=== PATIENT | female | born 1955 | race Caucasian/White ===

== ENCOUNTER 2017-11-26 10:09 | Inpatient (IN) | payer OTHER ==
[~2017-11-26] VITALS: Ht 167.6 cm; Wt 90.9 kg
[2017-11-26] MEDS ORDERED: PLEASE ENTER ALLERGIES MC SCH (10:30)
[2017-11-26] MEDS ORDERED: MORPHINE SULFATE 4 MG/ML, 1ML IVPush PRN ×2 (10:30→19:30)
[2017-11-26] MEDS ORDERED: PLEASE ENTER HEIGHT AND WEIGHT MC SCH (10:30)
[2017-11-26 10:57] LABS: BASOPHILS # (AUTO) 0.05 x10^3/uL (0-0.1); BASOPHILS % (AUTO) 0 % (0-1); EOSINOPHILS # (AUTO) 0.09 x10^3/uL (0-0.4); EOSINOPHILS % (AUTO) 1 % (1-7); LYMPHOCYTES # (AUTO) 2.95 x10^3/uL (1-3.4); LYMPHOCYTES % (AUTO) 22 % (22-44); MD NO; MEAN CORPUSCULAR HEMOGLOBIN 32.8 pg (27.0-34.8); MEAN CORPUSCULAR HGB CONC 34.1 g/dL (32.4-35.8); MEAN CORPUSCULAR VOLUME 96.2 fL (80-100); MEAN PLATELET VOLUME 8.5 fL (7.4-10.4); MONOCYTES # (AUTO) 0.76 x10^3/uL (0.2-0.8); MONOCYTES % (AUTO) 6 % (2-9); NEUTROPHILS # (AUTO) 9.52 x10^3/uL (1.8-6.8); NEUTROPHILS % (AUTO) 71 % (42-75); PLATELET COUNT 269 x10^3/uL (130-400); RED BLOOD COUNT 4.96 x10^6/uL (3.82-5.3); RED CELL DISTRIBUTION WIDTH 14.8 % (9.6-15.2)
[2017-11-26] MEDS ORDERED: MORPHINE SULFATE 4 MG/ML, 1ML ONE ×2 (11:00→19:12)
[2017-11-26 11:07] LABS: INTERNATIONAL NORMALIZED RATIO 0.95 (0.93-1.1); PROTHROMBIN TIME 9.8 Seconds (9.6-11.5)
[2017-11-26 11:09] LABS: ALBUMIN 3.3 g/dL (3.4-5.0); ANION GAP 4 mmol/L (5-15); CALCIUM 8.4 mg/dL (8.5-10.1); CHLORIDE 106 mmol/L (98-107); CREATININE 0.64 mg/dL (0.55-1.02)
[2017-11-26] MEDS ORDERED: LABETALOL 5MG/ML, 20ML IVPush PRN (12:00)
[2017-11-26] MEDS ORDERED: TEMAZEPAM 15 MG CAPSULE PO PRN (12:00)
[2017-11-26] MEDS ORDERED: ONDANSETRON ODT 4 MG PO PRN (12:00)
[2017-11-26] MEDS ORDERED: morphine SULFATE 10 MG/ML, 1ML IVPush PRN (12:00)
[2017-11-26] MEDS ORDERED: ONDANSETRON 2MG/ML, 2ML IVPush PRN (12:00)
[2017-11-26] MEDS: NICOTINE 14MG/24 HR PATCH.TD24 TD SCH (12:00)
[2017-11-26] MEDS ORDERED: CLOP75TA52 PO (12:05)
[2017-11-26] MEDS ORDERED: SIMV80TA7 PO (12:05)
[2017-11-26] MEDS ORDERED: ASPI-13 PO (12:05)
[2017-11-26] MEDS ORDERED: METO1TAB31 PO (12:05)
[2017-11-26] MEDS ORDERED: LOSA1TAB22 PO (12:05)
[2017-11-26] MEDS: HYDROcodone/APAP 5/325 TABLET PO PRN ×2 (14:00→21:10)
[2017-11-26] MEDS: D5%-0.45NACL+KCL 20MEQ 1,000 ML IV SCH (14:03)
[2017-11-26 14:30] VITALS: BP 125/76
[2017-11-26] MEDS ORDERED: LOSA100T7 PO (15:43)
[2017-11-26] MEDS ORDERED: METO25TA35 PO (15:43)
[2017-11-26] MEDS ORDERED: FAMO-79 PO (15:44)
[2017-11-26] MEDS ORDERED: [UNRECOGNIZED DRUG - OTHER] PO (15:45)
[2017-11-26] MEDS ORDERED: B SUPPLEMENT PO (15:46)
[2017-11-26] MEDS ORDERED: Nitroglycerin SL (15:48)
[2017-11-26] MEDS: METOPROLOL TARTRATE 25 MG TABLET PO SCH (17:42)
[2017-11-26] MEDS ORDERED: MIDAZOLAM 1 MG/ML, 2ML ONE (17:46)
[2017-11-26] MEDS ORDERED: FENTANYL PF 250 MCG/5ML ONE (17:46)
[2017-11-26] MEDS ORDERED: PROPOFOL 10 MG/ML, 20ML ONE (18:07)
[2017-11-26] MEDS ORDERED: SUCCINYLCHOLINE 20 MG/ML, 10ML ONE (18:07)
[2017-11-26] MEDS ORDERED: DEXAMETHASONE 4 MG/ML, 1ML ONE (18:07)
[2017-11-26] MEDS ORDERED: LACTATED RINGERS 1,000 ML ONE (18:07)
[2017-11-26] MEDS ORDERED: OXYcodone 5 MG/5 ML ORAL.SOL UDC PO PRN (19:00)
[2017-11-26] MEDS ORDERED: ALBUTEROL SULFATE 2.5 MG/3 ML NPPB PRN (19:00)
[2017-11-26] MEDS ORDERED: LABETALOL 5MG/ML, 20ML IV PRN (19:00)
[2017-11-26] MEDS ORDERED: ACETAMINOPHEN 325 MG TABLET PO PRN (19:00)
[2017-11-26] MEDS ORDERED: LORazepam 2 MG/ML, 1ML IVPush PRN (19:00)
[2017-11-26] MEDS ORDERED: hydrALAzine 20 MG/ML, 1ML IV PRN (19:00)
[2017-11-26] MEDS ORDERED: HYDROmorphone 1 MG/ML, 1ML IV PRN (19:00)
[2017-11-26] MEDS: FENTANYL PF 100 MCG/2ML IV PRN ×2 (19:09→19:16)
[2017-11-26] MEDS ORDERED: OXYcodone 5 MG/5 ML ORAL.SOL UDC ONE (19:12)
[2017-11-26] MEDS ORDERED: FENTANYL PF 100 MCG/2ML ONE (19:12)
[2017-11-26 19:54] VITALS: BP 100/63
[2017-11-26] MEDS: FAMOTIDINE 20 MG TABLET PO SCH (21:10)
[2017-11-26] MEDS: SIMVASTATIN 40 MG TABLET PO SCH (21:10)
[2017-11-27 01:23] VITALS: BP 96/58
[2017-11-27] MEDS: D5%-0.45NACL+KCL 20MEQ 1,000 ML IV SCH ×3 (01:51→21:35)
[2017-11-27] MEDS: HYDROcodone/APAP 5/325 TABLET PO PRN ×5 (02:12→21:08)
[2017-11-27] MEDS: CEFAZOLIN PMX 2GM/50ML 50 ML IV SCH ×2 (02:55→09:49)
[2017-11-27 05:27] LABS: MEAN CORPUSCULAR HEMOGLOBIN 32.4 pg (27.0-34.8); MEAN CORPUSCULAR HGB CONC 33.1 g/dL (32.4-35.8); MEAN CORPUSCULAR VOLUME 97.9 fL (80-100); MEAN PLATELET VOLUME 8.8 fL (7.4-10.4); PLATELET COUNT 228 x10^3/uL (130-400); RED BLOOD COUNT 3.94 x10^6/uL (3.82-5.3); RED CELL DISTRIBUTION WIDTH 14.9 % (9.6-15.2)
[2017-11-27 05:31] LABS: ALBUMIN 2.6 g/dL (3.4-5.0); ANION GAP 4 mmol/L (5-15); CALCIUM 7.8 mg/dL (8.5-10.1); CHLORIDE 103 mmol/L (98-107)
[2017-11-27 05:35] LABS: ALANINE AMINOTRANSFERASE 43 U/L (12-78); ALKALINE PHOSPHATASE 91 U/L (45-117); BILIRUBIN,TOTAL 0.3 mg/dL (0.2-1.0); TOTAL PROTEIN 5.5 g/dL (6.4-8.2)
[2017-11-27] MEDS: METOPROLOL TARTRATE 25 MG TABLET PO SCH ×2 (06:00→17:53)
[2017-11-27 06:15] LABS: BASOPHILS # (AUTO) 0.01 x10^3/uL (0-0.1); BASOPHILS % (AUTO) 0 % (0-1); EOSINOPHILS % (AUTO) 0 % (1-7); LYMPHOCYTES # (AUTO) 1.13 x10^3/uL (1-3.4); LYMPHOCYTES % (AUTO) 6 % (22-44); MD SCAN; MONOCYTES # (AUTO) 0.68 x10^3/uL (0.2-0.8); MONOCYTES % (AUTO) 4 % (2-9); NEUTROPHILS % (AUTO) 91 % (42-75)
[2017-11-27 07:35] VITALS: BP 100/61
[2017-11-27] MEDS: LOSARTAN 50MG TABLET PO SCH (09:00)
[2017-11-27] MEDS: FAMOTIDINE 20 MG TABLET PO SCH ×2 (09:06→21:08)
[2017-11-27] MEDS: CLOPIDOGREL 75 MG TABLET PO SCH (09:06)
[2017-11-27] MEDS: NICOTINE 14MG/24 HR PATCH.TD24 TD SCH (11:51)
[2017-11-27 13:56] VITALS: BP 103/61
[2017-11-27] MEDS: ACETAMINOPHEN 325 MG TABLET PO PRN ×3 (14:49→23:18)
[2017-11-27 17:53] VITALS: BP 112/62
[2017-11-27 19:54] VITALS: BP 116/51
[2017-11-27] MEDS: SIMVASTATIN 40 MG TABLET PO SCH (21:09)
[2017-11-28] MEDS: HYDROcodone/APAP 5/325 TABLET PO PRN ×5 (00:57→21:53)
[2017-11-28 03:00] VITALS: BP 105/58
[2017-11-28] MEDS: METOPROLOL TARTRATE 25 MG TABLET PO SCH ×2 (05:22→17:16)
[2017-11-28 05:54] LABS: BASOPHILS # (AUTO) 0.06 x10^3/uL (0-0.1); BASOPHILS % (AUTO) 0 % (0-1); EOSINOPHILS # (AUTO) 0.48 x10^3/uL (0-0.4); EOSINOPHILS % (AUTO) 3 % (1-7); LYMPHOCYTES # (AUTO) 3.13 x10^3/uL (1-3.4); LYMPHOCYTES % (AUTO) 22 % (22-44); MD NO; MEAN CORPUSCULAR HEMOGLOBIN 32.7 pg (27.0-34.8); MEAN CORPUSCULAR HGB CONC 33.4 g/dL (32.4-35.8); MEAN CORPUSCULAR VOLUME 97.8 fL (80-100); MEAN PLATELET VOLUME 9.1 fL (7.4-10.4); MONOCYTES % (AUTO) 6 % (2-9); NEUTROPHILS # (AUTO) 10.06 x10^3/uL (1.8-6.8); NEUTROPHILS % (AUTO) 69 % (42-75); PLATELET COUNT 200 x10^3/uL (130-400); RED BLOOD COUNT 3.77 x10^6/uL (3.82-5.3); RED CELL DISTRIBUTION WIDTH 14.6 % (9.6-15.2)
[2017-11-28 06:57] VITALS: BP 112/68
[2017-11-28] MEDS: D5%-0.45NACL+KCL 20MEQ 1,000 ML IV SCH ×2 (07:35→16:59)
[2017-11-28] MEDS: LOSARTAN 50MG TABLET PO SCH (09:00)
[2017-11-28] MEDS: CLOPIDOGREL 75 MG TABLET PO SCH (09:05)
[2017-11-28] MEDS: NICOTINE 14MG/24 HR PATCH.TD24 TD SCH (09:06)
[2017-11-28] MEDS: FAMOTIDINE 20 MG TABLET PO SCH ×2 (09:06→21:53)
[2017-11-28 12:15] VITALS: BP 107/65
[2017-11-28 20:58] VITALS: BP 95/58
[2017-11-28] MEDS: SIMVASTATIN 40 MG TABLET PO SCH (21:00)
[2017-11-29] MEDS: HYDROcodone/APAP 5/325 TABLET PO PRN ×4 (01:53→14:29)
[2017-11-29] MEDS: D5%-0.45NACL+KCL 20MEQ 1,000 ML IV SCH ×2 (03:17→09:44)
[2017-11-29 04:19] VITALS: BP 103/62
[2017-11-29 05:39] LABS: BASOPHILS # (AUTO) 0.03 x10^3/uL (0-0.1); BASOPHILS % (AUTO) 0 % (0-1); EOSINOPHILS # (AUTO) 0.32 x10^3/uL (0-0.4); EOSINOPHILS % (AUTO) 3 % (1-7); LYMPHOCYTES # (AUTO) 3.24 x10^3/uL (1-3.4); LYMPHOCYTES % (AUTO) 29 % (22-44); MD NO; MEAN CORPUSCULAR HEMOGLOBIN 32.5 pg (27.0-34.8); MEAN CORPUSCULAR HGB CONC 33.5 g/dL (32.4-35.8); MEAN CORPUSCULAR VOLUME 97.2 fL (80-100); MEAN PLATELET VOLUME 8.7 fL (7.4-10.4); MONOCYTES % (AUTO) 9 % (2-9); NEUTROPHILS % (AUTO) 59 % (42-75); PLATELET COUNT 188 x10^3/uL (130-400); RED BLOOD COUNT 3.07 x10^6/uL (3.82-5.3); RED CELL DISTRIBUTION WIDTH 14.5 % (9.6-15.2)
[2017-11-29] MEDS: METOPROLOL TARTRATE 25 MG TABLET PO SCH (06:00)
[2017-11-29 07:14] VITALS: BP 110/76
[2017-11-29] MEDS: FAMOTIDINE 20 MG TABLET PO SCH (08:01)
[2017-11-29] MEDS: CLOPIDOGREL 75 MG TABLET PO SCH (08:01)
[2017-11-29] MEDS: LOSARTAN 50MG TABLET PO SCH (08:01)
[2017-11-29] MEDS: NICOTINE 14MG/24 HR PATCH.TD24 TD SCH (09:44)
[2017-11-29] MEDS ORDERED: IBUP-653 PO (09:45)
[2017-11-29] MEDS ORDERED: ENOX40SY4 SQ (09:45)
[2017-11-29] MEDS ORDERED: METH750T87 PO (09:45)
[2017-11-29] MEDS ORDERED: PINK LADY ENEMA 490 ML BOTTLE PR ONE (10:00)
[2017-11-29 14:00] VITALS: BP 105/63
[2017-11-29 15:58] VITALS: BP 105/65
== END 2017-11-29 17:00 | disposition home or self-care (01) | DRG 480 ==
LOC: ED 10:25 → EDIP 11:11 → 4NOR 12:22 → DCLOUNGE 11-29 16:38
PROVIDERS: ADMIT Internal Medicine; ATTEND Internal Medicine
PROC: 0QS636Z Reposition Right Upper Femur with Intramedullary Internal Fixation Device, Percutaneous Approach (ICD-10-PCS; principal; 2017-11-26 17:30)
DX: S72.141A Displaced intertrochanteric fracture of right femur, initial encounter for closed fracture (principal); J96.91 Respiratory failure, unspecified with hypoxia; D64.9 Anemia, unspecified; D72.829 Elevated white blood cell count, unspecified; E66.9 Obesity, unspecified; E78.5 Hyperlipidemia, unspecified; F17.210 Nicotine dependence, cigarettes, uncomplicated; G40.909 Epilepsy, unspecified, not intractable, without status epilepticus; W01.0XXA Fall on same level from slipping, tripping and stumbling without subsequent striking against object, initial encounter; K21.9 Gastro-esophageal reflux disease without esophagitis; M19.90 Unspecified osteoarthritis, unspecified site; I11.9 Hypertensive heart disease without heart failure; I25.10 Atherosclerotic heart disease of native coronary artery without angina pectoris; J44.9 Chronic obstructive pulmonary disease, unspecified; Y93.89 Activity, other specified; Y92.098 Other place in other non-institutional residence as the place of occurrence of the external cause; I25.2 Old myocardial infarction; Z90.49 Acquired absence of other specified parts of digestive tract; Z90.710 Acquired absence of both cervix and uterus; Z95.5 Presence of coronary angioplasty implant and graft; Y99.8 Other external cause status; Z87.81 Personal history of (healed) traumatic fracture; Z98.1 Arthrodesis status; Z88.5 Allergy status to narcotic agent; Z79.899 Other long term (current) drug therapy; Z68.32 Body mass index [BMI] 32.0-32.9, adult
CPT/HCPCS: 36415; 71045; 76000; 80048; 80053; 82040; 85025; 85610; 85730; 93005; 96374; 99285; C1713; G0378; J0690; J1100; J2250; J2704; J3010; Q0162; J0330; J2270; J3480; J7120